=== PATIENT | female | born 1990 | race Caucasian/White ===

== ENCOUNTER 2016-12-06 16:26 | Inpatient (IN) | payer OTHER ==
[~2016-12-06] VITALS: Ht 152.4 cm; Wt 76.4 kg
[2016-12-06] MEDS ORDERED: OXYTOCIN 30U/ 0.9% NaCL 500ML 500 ML IV ONE (17:12)
[2016-12-06] MEDS ORDERED: OXYTOCIN 30U/ 0.9% NaCL 500ML 500 ML IV PRN (17:12)
[2016-12-06] MEDS ORDERED: D5%-LACTATED RINGERS 1,000 ML IV SCH (17:12)
[2016-12-06] MEDS: LACTATED RINGERS 1,000 ML IV SCH ×2 (17:23→21:27)
[2016-12-06] MEDS ORDERED: ONDANSETRON 2MG/ML, 2ML IVPush PRN (17:30)
[2016-12-06] MEDS ORDERED: CALCIUM CARBONATE 500 MG TAB.CHEW PO PRN (17:30)
[2016-12-06 17:33] VITALS: BP 123/89
[2016-12-06] MEDS ORDERED: NEWBORN KIT ONE (17:53)
[2016-12-06] MEDS ORDERED: OXYTOCIN 30U/ 0.9% NaCL 500ML 500 ML ONE (17:53)
[2016-12-06] MEDS ORDERED: LIDOCAINE 1%, 20ML ONE (17:53)
[2016-12-06] MEDS ORDERED: MISOPROSTOL 200 MCG TABLET ONE (17:53)
[2016-12-06] MEDS ORDERED: FENTANYL PF 100 MCG/2ML ONE ×3 (21:30→23:50)
[2016-12-06] MEDS: FENTANYL PF 100 MCG/2ML IVPush PRN ×2 (21:31→22:58)
[2016-12-07] MEDS: FENTANYL PF 100 MCG/2ML IVPush PRN ×2 (00:09→00:57)
[2016-12-07] MEDS: LACTATED RINGERS 1,000 ML IV SCH ×3 (00:18→22:38)
[2016-12-07] MEDS ORDERED: FENTANYL PF 100 MCG/2ML ONE ×3 (00:47→06:24)
[2016-12-07] MEDS ORDERED: BUTORPHANOL 1 MG/ML, 1ML IVPush ONE (01:30)
[2016-12-07] MEDS ORDERED: BUPIVACAINE/PF 0.25% ONE (03:52)
[2016-12-07] MEDS ORDERED: FENTANYL/BUPIV./NS/PF 250 ML EPIDCONT ONE (03:53)
[2016-12-07] MEDS ORDERED: FENTANYL/BUPIV./NS/PF 250 ML EPIDCONT SCH (04:37)
[2016-12-07] MEDS ORDERED: LACTATED RINGERS 1,000 ML IV SCH (04:37)
[2016-12-07] MEDS ORDERED: EPHEDRINE 50 MG/ML, 1ML IVPush PRN ×2 (05:00→07:30)
[2016-12-07] MEDS ORDERED: NALOXONE 0.4 MG/ML, 1ML IVPush PRN (05:00)
[2016-12-07] MEDS ORDERED: LACTATED RINGERS 1,000 ML IVBOLUS PRN (05:00)
[2016-12-07] MEDS ORDERED: TERBUTALINE 1 MG/ML, 1ML ONE (06:19)
[2016-12-07] MEDS ORDERED: ESMOLOL 100 MG/10 ML ONE (06:20)
[2016-12-07] MEDS ORDERED: PHENYLEPHRINE 10 MG/ML ONE (06:20)
[2016-12-07] MEDS ORDERED: KETOROLAC 30 MG/1 ML ONE (06:20)
[2016-12-07] MEDS ORDERED: DEXAMETHASONE 4 MG/ML, 1ML ONE (06:20)
[2016-12-07] MEDS ORDERED: ONDANSETRON 2MG/ML, 2ML ONE (06:20)
[2016-12-07] MEDS ORDERED: OXYTOCIN 10 UNITS/ML, 1ML ONE (06:20)
[2016-12-07] MEDS ORDERED: CEFAZOLIN 1,000 MG ONE (06:20)
[2016-12-07] MEDS ORDERED: ACETAMINOPHEN 325 MG TABLET ONE (07:29)
[2016-12-07] MEDS ORDERED: ONDANSETRON 2MG/ML, 2ML IVPush PRN (07:30)
[2016-12-07] MEDS ORDERED: METOCLOPRAMIDE 5 MG/ML, 2ML IV ONE (07:30)
[2016-12-07] MEDS ORDERED: MEPERIDINE/PF 25MG/0.5ML IVPush PRN (07:30)
[2016-12-07] MEDS ORDERED: SODIUM CITRATE/CITRIC ACID 30 ML UDC PO ONE (07:30)
[2016-12-07] MEDS ORDERED: OXYcodone 5 MG/5 ML ORAL.SOL UDC PO PRN (07:30)
[2016-12-07] MEDS ORDERED: MIDAZOLAM 1 MG/ML, 2ML IV PRN (07:30)
[2016-12-07] MEDS ORDERED: TERBUTALINE 1 MG/ML, 1ML IV ONE (07:30)
[2016-12-07] MEDS ORDERED: hydrALAzine 20 MG/ML, 1ML IV PRN (07:30)
[2016-12-07] MEDS ORDERED: PROMETHAZINE 25 MG/ML, 1ML IV PRN (07:30)
[2016-12-07] MEDS ORDERED: HYDROmorphone 1 MG/ML, 1ML IV PRN (07:30)
[2016-12-07] MEDS ORDERED: FENTANYL PF 100 MCG/2ML IV PRN (07:30)
[2016-12-07] MEDS ORDERED: HYDROcodone/APAP 7.5-325MG/15ML UDC PO PRN (07:30)
[2016-12-07] MEDS ORDERED: LABETALOL 5MG/ML, 20ML IV PRN (07:30)
[2016-12-07] MEDS ORDERED: OXYTOCIN 30U/ 0.9% NaCL 500ML 500 ML ONE (07:43)
[2016-12-07] MEDS ORDERED: ACETAMINOPHEN 325 MG TABLET PO PRN ×2 (08:00→12:30)
[2016-12-07] MEDS: OXYTOCIN 30U/ 0.9% NaCL 500ML 500 ML IV SCH ×4 (08:08→22:22)
[2016-12-07] MEDS ORDERED: PREN1TAB60 PO (08:20)
[2016-12-07] MEDS ORDERED: OXYcodone 5 MG/5 ML ORAL.SOL UDC ONE (08:30)
[2016-12-07 09:45] VITALS: BP 104/58
[2016-12-07] MEDS ORDERED: MISOPROSTOL 200 MCG TABLET PR PRN (12:30)
[2016-12-07] MEDS ORDERED: CALCIUM CARBONATE 500 MG TAB.CHEW PO PRN (12:30)
[2016-12-07] MEDS ORDERED: morphine SULFATE 10 MG/ML, 1ML IVPush PRN ×2 (12:30)
[2016-12-07] MEDS ORDERED: METOCLOPRAMIDE 5 MG/ML, 2ML IV PRN (12:30)
[2016-12-07] MEDS ORDERED: ONDANSETRON 2MG/ML, 2ML IV PRN (12:30)
[2016-12-07] MEDS ORDERED: SIMETHICONE 80 MG CHEW TAB PO PRN (12:30)
[2016-12-07] MEDS: KETOROLAC 30 MG/1 ML IV SCH ×2 (13:33→19:45)
[2016-12-07 13:45] VITALS: BP 110/68
[2016-12-07] MEDS ORDERED: CEFAZOLIN 1,000 MG IM SCH (14:00)
[2016-12-07] MEDS: CEFAZOLIN PMX 1GM/50ML 50 ML IVPB SCH ×2 (14:28→22:38)
[2016-12-07 15:33] LABS: DIFF TOTAL CELLS COUNTED 100 CELL DIFF
[2016-12-07 15:35] LABS: VERIFY COUNTS? YES
[2016-12-07 15:36] LABS: ANISOCYTOSIS 1+; MICROCYTOSIS 1+; POLYCHROMASIA 1+
[2016-12-07 17:30] VITALS: BP 109/61
[2016-12-07 20:00] VITALS: BP 109/65
[2016-12-08 00:30] VITALS: BP 98/59
[2016-12-08] MEDS: KETOROLAC 30 MG/1 ML IV SCH ×2 (03:38→09:20)
[2016-12-08 04:00] VITALS: BP 104/62
[2016-12-08] MEDS: OXYTOCIN 30U/ 0.9% NaCL 500ML 500 ML IV SCH (04:03)
[2016-12-08] MEDS: CEFAZOLIN PMX 1GM/50ML 50 ML IVPB SCH ×2 (05:59→14:17)
[2016-12-08 06:09] LABS: DIFF TOTAL CELLS COUNTED 100 CELL DIFF
[2016-12-08 06:11] LABS: VERIFY COUNTS? YES
[2016-12-08 06:12] LABS: ANISOCYTOSIS 1+; POLYCHROMASIA 1+
[2016-12-08 06:13] LABS: MICROCYTOSIS 1+
[2016-12-08 07:46] VITALS: BP 99/67
[2016-12-08] MEDS: DOCUSATE 100 MG CAPSULE PO PRN ×2 (09:20→21:11)
[2016-12-08] MEDS: PRENATAL VIT/IRON/FA 1 EACH TABLET PO SCH (09:20)
[2016-12-08] MEDS: IBUPROFEN 600 MG TABLET PO PRN (17:04)
[2016-12-08] MEDS: OXYcodone/APAP 5/325MG TABLET PO PRN ×2 (17:04→21:11)
[2016-12-08 20:15] VITALS: BP 112/65
[2016-12-08] MEDS: CEFTRIAXONE 1,000 MG IM SCH (21:12)
[2016-12-09] MEDS: IBUPROFEN 600 MG TABLET PO PRN ×4 (00:13→21:33)
[2016-12-09] MEDS: OXYcodone/APAP 5/325MG TABLET PO PRN ×3 (03:25→21:33)
[2016-12-09 08:15] VITALS: BP 107/61
[2016-12-09] MEDS: PRENATAL VIT/IRON/FA 1 EACH TABLET PO SCH (11:50)
[2016-12-09] MEDS: DOCUSATE 100 MG CAPSULE PO PRN ×2 (11:50→21:33)
[2016-12-09 19:20] VITALS: BP 109/72
[2016-12-09] MEDS: CEFTRIAXONE 1,000 MG IM SCH (21:00)
[2016-12-10 08:00] VITALS: BP 107/72
[2016-12-10] MEDS: OXYcodone/APAP 5/325MG TABLET PO PRN ×2 (08:27→20:28)
[2016-12-10] MEDS: DOCUSATE 100 MG CAPSULE PO PRN ×2 (08:27→20:28)
[2016-12-10] MEDS: IBUPROFEN 600 MG TABLET PO PRN ×2 (08:27→16:56)
[2016-12-10] MEDS: PRENATAL VIT/IRON/FA 1 EACH TABLET PO SCH (08:27)
[2016-12-10 11:47] VITALS: BP 119/75
[2016-12-10 19:46] VITALS: BP 120/79
[2016-12-11] MEDS: IBUPROFEN 600 MG TABLET PO PRN ×2 (04:51→11:52)
[2016-12-11] MEDS: OXYcodone/APAP 5/325MG TABLET PO PRN ×2 (04:52→11:52)
[2016-12-11] MEDS ORDERED: IBUP-1222 PO (08:02)
[2016-12-11] MEDS ORDERED: OXYC-302 PO (08:02)
[2016-12-11 08:15] VITALS: BP 121/75
[2016-12-11] MEDS: PRENATAL VIT/IRON/FA 1 EACH TABLET PO SCH (09:00)
[2016-12-11] MEDS: DOCUSATE 100 MG CAPSULE PO PRN (09:12)
== END 2016-12-11 13:47 | disposition home or self-care (01) | DRG 765 ==
LOC: LDIP 16:26 → 2NW 12-07 09:35
PROVIDERS: ADMIT Obstetrics & Gynecology; ATTEND Obstetrics & Gynecology
PROC: 10D00Z1 Extraction of Products of Conception, Low, Open Approach (ICD-10-PCS; principal; 2016-12-07)
DX: O76 Abnormality in fetal heart rate and rhythm complicating labor and delivery (principal); O86.4 Pyrexia of unknown origin following delivery; O63.0 Prolonged first stage (of labor); O64.0XX0 Obstructed labor due to incomplete rotation of fetal head, not applicable or unspecified; O62.1 Secondary uterine inertia; Z37.0 Single live birth; Z3A.38 38 weeks gestation of pregnancy
CPT/HCPCS: 36415; 74000; 82803; 85025; 86850; 86900; J0690; J0696; J1100; J1885; J2405; J3010; J0595; J2370; J2590; J2765; J3105; J7120